=== PATIENT | female | born 1995 | race Caucasian/White ===

== ENCOUNTER 2017-08-21 05:41 | Inpatient (IN) | payer OTHER ==
[2017-08-21] MEDS ORDERED: Acetaminophen 500 MG TAB ONE (06:03)
[2017-08-21 06:31] LABS: Bilirubin Negative (Negative); Blood, Urine Trace (Negative); Clarity TURBID (Clear); Glucose, Urine (Dipstick) Negative (Negative); Leukocyte Large (Negative); Nitrite Negative (Negative); Protein, Urine (Dipstick) 30 mg/dL (Neg-Trace); Specific Gravity, Urine 1.014 (1.002-1.036); pH, Urine 6.5 (5.0-9.0)
[2017-08-21 06:33] LABS: Bacteria/HPF 4+ HPF (None Seen); Hyaline Casts/LPF 0-3 HYALINE CAST LPF (0-3 Hyaline); Squamous Epithelial 0-3 HPF (0-3)
[2017-08-21 06:55] LABS: Anion Gap 14 mmol/L (10-20); BUN (Urea Nitrogen) Less than 4 mg/dL (7.0-18.7); Calc. Creatinine Clearance 0 mL/min (70-130); Calcium 8.6 mg/dL (7.8-10.44); Carbon Dioxide 22 mmol/L (22-29); Chloride 97 mmol/L (98-107); Estimated GFR-MDRD Greater than 90; Glucose 113 mg/dL (70-105); Potassium 3.2 mmol/L (3.5-5.1); Sodium 130 mmol/L (136-145)
[2017-08-21 07:03] LABS: Band 10 % (5-11); Hemoglobin 12.4 g/dL (12.0-16.0); Lymphocytes 5 % (28-48); MDiff Complete? YES; Mean Corpuscular HGB CONC 34.2 g/dL (32.0-36.0); Mean Corpuscular Hemoglobin 28.9 pg (25.0-35.0); Mean Corpuscular Volume 84.5 fl (77.0-87.0); Mean Platelet Volume 8.3 fL (7.4-10.4); Monocytes 3 % (0-4); Neutrophil 82 % (31-61); Platelet Count 118 thou/uL (130-400); RBC Distribution Width 19.4 % (11.5-14.5); White Blood Cell (WBC) Count 12.9 thou/uL (4.8-10.8)
[2017-08-21] MEDS ORDERED: Sodium Chloride 0.9% 100 ML ONE (07:18)
[2017-08-21] MEDS ORDERED: cefTRIAXone\\ROCEPHIN 2 GM VIAL ONE (07:18)
[2017-08-21] MEDS ORDERED: Ondansetron HCl/PF 4 MG/2 ML Vial IVP PRN (08:51)
[2017-08-21] MEDS ORDERED: Acetaminophen 325 MG TAB PO PRN (08:51)
[2017-08-21] MEDS ORDERED: Lactated Ringer's 1,000 ML IV SCH ×2 (09:45→13:45)
[2017-08-21] MEDS ORDERED: Acetaminophen 1,000 MG in Premix Bag 1 BAG IVPB SCH (09:45)
[2017-08-21] MEDS ORDERED: Sodium Chloride 0.9% 1,000 ML IV SCH (10:45)
--- NOTE | 2017-08-21 11:11 | ULT ---
OB ULTRASOUND: Date: 08/21/17 HISTORY: Pyelonephritis. Fever. FINDINGS: Real-time images of the pelvis were obtained transabdominally and show a single viable intrauterine p regnancy in cephalic presentation. The placenta is anterior in location without evidence of previa. Review of anatomy showed no anomalies detected. Amniotic fluid is adequate for this stage of pr egnancy, with an amniotic fluid index of 16.5. heart rate is 180 beats/minute. measurements are as follows: BPD: 6.6 cm, 26 weeks/4 days HC: 23.6 cm, 25 weeks/5 days AC: 21.2 cm, 25 weeks/5 days FL: 4.7 cm, 25 weeks/6 days IMPRESSION: 1. Single viable intrauterine in cephalic presentation. Overall measurements corresponding to a gestational age of 25 weeks/6 days. Estimated date of delivery is 11/28/17. This corresponds to the estimated date by clinical age. 2. Placenta which is anterior in location and without evidence of previa. POS: [facility]
[2017-08-21] MEDS: Docusate 100 MG CAP PO SCH ×2 (12:35→21:43)
--- NOTE | 2017-08-21 13:13 | HP ---
DATE OF ENCOUNTER: 08/21/2017 PRIMARY INVESTMENT BANKING MANAGER: Dr. Omid Hinds. CHIEF COMPLAINT: Fever and back pain. HISTORY OF PRESENT ILLNESS: The patient is a 21-year-old, , female with an intrauterine pregnan cy at 25 weeks and 3 days, who has been followed by Dr. Omid Hinds for approximately the last month . She reports that she presented to the emergency room, because she was having fevers since Tuesday a nd back pain. Her evaluation in the emergency room was consistent with pyelonephritis with a urine c onsistent with infection, CVA tenderness, and high fevers. Urine culture was performed, p.o. Tylenol , and 2 grams of Rocephin were given. The patient was then transferred to Labor and Delivery for con tinued care. She reports that since seeing Dr. Hinds, she has been on oral antibiotics in an attempt to clear urinary tract infection. She does not remember the names of the antibiotics she has been o n though she has been on several courses. Patient reports that she has been having some vomiting and some diarrhea. She reports she still has an appetite. Denies uterine contractions, vaginal bleedin g, leakage of fluid. She denies headaches, fall, chest pain, shortness of breath, new rashes, abdomi nal pain, leg pain or weakness, vaginal bleeding, leakage of fluid, urinary urgency or frequency. Th e patient reports her back hurts like it does when she has been in the car for a long time. PAST MEDICAL HISTORY: Negative. PAST SURGICAL HISTORY: Negative. OBSTETRIC HISTORY: Negative. ALLERGIES: No known drug allergies. SOCIAL HISTORY: Denies drug, alcohol, or tobacco use. OB LABS: Unavailable. REVIEW OF SYSTEMS: Per HPI. PHYSICAL EXAMINATION: VITAL SIGNS: Upon coming to the floor, temperature was initially 100 degrees and has since risen to 104 over a couple hours period, blood pressure is 106/60, pulse in the 100s, respiratory rate 18, sat ting 99% on room air. GENERAL: She appears to be a little lethargic, but otherwise in no acute distress. She is alert and oriented, cooperative and pleasant to interact with. HEAD: Normocephalic, atraumatic. LUNGS: Clear to auscultation bilaterally. HEART: Regular rhythm and is a little tachycardic. ABDOMEN: Soft, gravid, nontender. EXTREMITIES: Nontender, nonedematous. GENITOURINARY EXAM: Has otherwise been deferred. heart tracing performed. Baselines in the 150s with moderate long-term variability, appropriat e for 25 weeker, no contractions seen on tocometer. LABORATORY DATA: White count 12.9, hemoglobin 12.4, hematocrit 36.3, platelets 118,000, neutrophil p ercentage 82. Sodium 130, potassium 3.2, creatinine 0.64. Lactic acid 1.5, calcium 8.6. Urine has 1+ protein, large ketones trace, blood, negative nitrites, large leukocyte esterase, greater than 50 white blood cells, 0 squamous cells, 4+ bacteria. A urine culture is pending and blood cultures pend ing. The patient has been given approximately 3 liters of IV fluids since admission and has been given a d ose of Rocephin. With the patient's high temperatures and persistent temperatures after IV Tylenol, I have added gentamicin to her regimen once a day dosing at 5 mg/kg. I have notified her primary OB, Dr. Omid Hinds, who has asked us to manage her this admission. She is here in Labor and Delivery. We will keep a close eye on her and look for any signs of worsening disease or any pulmonary compli cations.
[2017-08-21] MEDS: NS 0.9% w/ 40 MEQ KCL 1,000 ML IV SCH ×2 (15:26→21:28)
[2017-08-21] MEDS ORDERED: Acetaminophen 1,000 MG in Premix Bag 1 BAG IVPB PRN (16:16)
[2017-08-21] MEDS ORDERED: Acetaminophen 500 MG TAB PO PRN (16:21)
[2017-08-21] MEDS ORDERED: Acetaminophen 325 MG TAB PO SCH (16:30)
[2017-08-21] MEDS: Sodium Chloride 0.9% 500 ML IV SCH ×2 (16:31→18:48)
[2017-08-21] MEDS ORDERED: Sodium Chloride 0.9% 500 ML IV SCH (18:15)
[2017-08-21 20:03] LABS: Mean Corpuscular HGB CONC 33.8 g/dL (32.0-36.0); Mean Corpuscular Hemoglobin 28.7 pg (25.0-35.0); Mean Corpuscular Volume 85.2 fl (77.0-87.0); Mean Platelet Volume 8.5 fL (7.4-10.4); Platelet Count 90 thou/uL (130-400); RBC Distribution Width 19.1 % (11.5-14.5); Red Blood Cell (RBC) Count 3.49 mill/uL (4.00-5.20); White Blood Cell (WBC) Count 9.4 thou/uL (4.8-10.8)
[2017-08-21 20:11] LABS: Lactic Acid 1.8 mmol/L (0.5-2.2)
[2017-08-21 20:21] LABS: Anisocytosis SLIGHT = 6-15 cells (100X) (0-5/hpf); Band 10 % (5-11); Lymphocytes 9 % (28-48); MDiff Complete? YES; Monocytes 2 % (0-4); Neutrophil 79 % (31-61); PLT Morphology Comment Appears Decreased; Polychromasia SLIGHT = 2-3 cells (100X) (0-2/hpf)
--- NOTE | 2017-08-21 20:49 | RAD ---
PORTABLE UPRIGHT FRONTAL CHEST RADIOGRAPH: 08/21/2017 HISTORY: Shortness of breath and crackles. COMPARISON: None. FINDINGS: Heart and mediastinal contours are unremarkable. There is no pneumothorax seen. There is mild increased linear density in both lung bases, which could represent volume loss or mild interstitial infiltrate. No focal consolidation or alveolar edema. IMPRESSION: Mild nonspecific increased linear density in the lung bases with no focal consolidation or alveolar e tom. A mild degree of interstitial edema or interstitial inflammatory change cannot be excluded. POS: [facility]
[2017-08-21] MEDS ORDERED: Sodium Chloride 0.9% 250 ML 250 ML IV PRN (21:10)
[2017-08-21] MEDS: cefTRIAXone\\ROCEPHIN 1 GM in Sodium Chloride 0.9% 100 ML IVPB SCH (21:43)
[2017-08-21] MEDS: NS 0.9% w/ 20 MEQ KCL 1,000 ML/1,000 ML BAG IV SCH (21:46)
--- NOTE | 2017-08-21 21:49 | PRG ---
DATE OF SERVICE: 08/21/2017 TIME: 2007 SUBJECTIVE: Patient is a 21-year-old female G1, P0 with an intrauterine at 25 weeks, who w as admitted this morning for right-sided pyelonephritis and placed on Rocephin. Throughout the day, the patient has progressively shown signs of worsening disease. Blood pressures have decrease from t he 100s/60s to 90s/40s increasing tachycardia from 100s to the 130s. Respiratory rate is increased. Patient has been desaturating into the lower 90s with crackles on her lungs. PHYSICAL EXAMINATION: Temperature has been difficult to keep down. On arrival, patient had a temper ature of 100.0. Through much of the day, her temperature has been between 102 and 104 degrees. Not responsive to Tylenol. Given the overall concerns in addition, the patient has received about 5 lite rs of IV fluids in an effort to improve her overall picture. On arrival, lactic acid was normal at 1.5, creatinine 0.64. Patient reports she is having back pain and visibly she appears much more tired than earlier today and becoming more tachypneic. I have orde red another lactic acid, CBC, and ABG and a chest x-ray. Dunbar catheter has been placed and shows th e initial output of about 400-500 mL, which is good evidence of perfusion at this time. I have consu lted pulmonology, Dr. Carrillo on duty tonight with my overall concerns that she may require more supp ort than I can give her here in labor and delivery tonight in the direction that she is going. I hav e transferred the patient to the ICU. Hopefully, she does not require respiratory support or pressur e support, but in the event that she does tonight. The ICU was a much better place for her at this t adán. Thank you, Dr. Carrillo for your assistance. The patient has received Rocephin and gentamicin today, 5 liters of fluids and Tylenol for fever.
--- NOTE | 2017-08-22 02:04 | CON ---
DATE OF CONSULTATION: 08/21/2017 CONSULTING PHYSICIAN: Dr. Sprague. REASON FOR CONSULTATION: Pyelonephritis with hypotension and sepsis. HISTORY OF PRESENT ILLNESS: Patient is a 21-year-old female who is 24 weeks' . She came in with back pain and difficulty with urination. She has been treated for urinary tract infections over the last month and a half. She has had a course of Keflex. She has grown E. coli, which is apparen tly resistant to gentamicin. She is up in the labor and delivery area. She has had blood pressur e down into the 90s with a fever of 104. Her pulse is running about 130. They were concerned about her O2 sats being in the low 90s, but that was while she was having fever. PAST MEDICAL HISTORY: This is her first . PAST SURGICAL HISTORY: None. ALLERGIES: None. SOCIAL HISTORY: Does not smoke, does not consume alcohol, does not use illicit drugs. MEDICATIONS PRIOR TO ADMISSION: She had been taking Macrodantin and Keflex at one point. She has al so been taking multivitamins. REVIEW OF SYSTEMS: Twelve-point review of systems, otherwise negative. PHYSICAL EXAMINATION: VITAL SIGNS: Temperature 104.7, pulse 129, respirations 20, blood pressure 97/50. She is sitting up in bed. She is texting. She is concerned about being able to have water and consumer [employer] ord ered in the ICU. She is in no gerard distress. HEENT: Unremarkable. NECK: Without adenopathy or JVD. LUNGS: She has a few crackles in both bases. No accessory muscle use. CARDIOVASCULAR: S1, S2, tachycardic without murmur. ABDOMEN: Gravid. BACK: No palpable costovertebral angle tenderness. EXTREMITIES: No clubbing or cyanosis. NEUROLOGIC: Grossly intact throughout. She had heart tones that were at the appropriate rate. LABORATORY DATA AND X-RAY FINDINGS: Urinalysis demonstrated too numerous to count white blood cells. Sodium 130, potassium 3.2, chloride 97, CO2 of 22, anion gap 14, BUN 4, creatinine 0.6, glucose 113 . Lactate 1.8. White blood cell count 9.4, hematocrit 29.7, platelet count 90 with 79% neutrophils, 10% bands. Her x-ray showed no overt mass, effusion, or infiltrate. ASSESSMENT: 1. Pyelonephritis. 2. Sepsis syndrome. PLAN: She will be moved to the CCU. I think, we can be preliberal with fluid administration, as she has no evidence of heart failure that I can see. She will receive Rocephin for IV antibiotics cover age - discussed this with Dr. Sprague. She will be resuscitated with normal saline. Labs will be ch ecked. I will also put on vitamin C and thiamine for sepsis. The above encompassed 45 minutes of critical care time.
[2017-08-22] MEDS: NS 0.9% w/ 20 MEQ KCL 1,000 ML/1,000 ML BAG IV SCH (04:28)
[2017-08-22 05:00] LABS: #Lymphocytes 0.9 thou/uL (1.20-3.40); #Monocytes 0.7 thou/uL (0.11-0.59); #Neutrophils 9.1 thou/uL (1.40-6.50); %Eosinophils 0.2 % (0.0-10.0); %Lymphocytes 8.6 % (28.0-48.0); %Monocytes 6.3 % (0.0-4.0); %Neutrophils 84.9 % (31.0-61.0); Hemoglobin 9.8 g/dL (12.0-16.0); Mean Corpuscular HGB CONC 32.8 g/dL (32.0-36.0); Mean Corpuscular Hemoglobin 27.9 pg (25.0-35.0); Mean Corpuscular Volume 85.1 fl (77.0-87.0); Mean Platelet Volume 8.9 fL (7.4-10.4); Platelet Count 94 thou/uL (130-400); RBC Distribution Width 19.1 % (11.5-14.5); Red Blood Cell (RBC) Count 3.49 mill/uL (4.00-5.20); White Blood Cell (WBC) Count 10.7 thou/uL (4.8-10.8)
[2017-08-22 06:10] LABS: Anion Gap 14 mmol/L (10-20); BUN (Urea Nitrogen) Less than 4 mg/dL (7.0-18.7); Calc. Creatinine Clearance 186 mL/min (70-130); Calcium 7.7 mg/dL (7.8-10.44); Carbon Dioxide 14 mmol/L (22-29); Chloride 110 mmol/L (98-107); Estimated GFR-MDRD Greater than 90; Glucose 98 mg/dL (70-105); Potassium 3.1 mmol/L (3.5-5.1); Sodium 135 mmol/L (136-145)
[2017-08-22] MEDS ORDERED: Potassium Chloride 20 MEQ TAB PO SCH (07:45)
--- NOTE | 2017-08-22 07:50 | PRG ---
DATE OF SERVICE: 08/22/2017 She feels somewhat better compared to yesterday, but that is probably because her fever is down. PHYSICAL EXAMINATION: VITAL SIGNS: Currently, she is at 100.6, pulse 115, blood pressure 110/46. 24 hour intake is probab ly close to 6 liters, output 3015. HEENT: Unremarkable. NECK: No JVD. LUNGS: Clear. CARDIAC: S1 and S2 tachycardic. ABDOMEN: Soft, nontender. EXTREMITIES: No edema. LABORATORY DATA: White blood count 10.7 down from 12.9, hematocrit 29.7, platelet count 94. Sodium 135, potassium 3.1, chloride 110, CO2 14, BUN 4, creatinine 0.5, glucose 98. Lactate 1.0. Micro cul tures showed no growth to date. ASSESSMENT: 1. Pyelonephritis. 2. Sepsis syndrome. 3. Mild thrombocytopenia. 4. Non-anion gap metabolic acidosis. 5. Mild hypokalemia. PLAN: 1. Replace potassium. 2. Change IV fluids to help with the patient's acidosis. 3. Can probably go to the OB floor later today.
[2017-08-22] MEDS ORDERED: cefTRIAXone\\ROCEPHIN 2 GM in Sodium Chloride 0.9% 100 ML IVPB SCH (08:00)
[2017-08-22] MEDS ORDERED: Acetaminophen 1,000 MG in Premix Bag 1 BAG IVPB PRN (08:52)
[2017-08-22] MEDS: SODIUM CHLORIDE 0.45% IV SCH ×2 (09:18→22:10)
[2017-08-22] MEDS: POTASSIUM CHLORIDE IV SCH ×2 (09:18→22:10)
[2017-08-22] MEDS: SODIUM BICARBONATE IV SCH ×2 (09:18→22:10)
[2017-08-22] MEDS: Docusate 100 MG CAP PO SCH ×2 (09:30→22:30)
[2017-08-22] MEDS: cefTRIAXone\\ROCEPHIN 1 GM in Sodium Chloride 0.9% 100 ML IVPB SCH ×2 (10:11→21:27)
--- NOTE | 2017-08-22 10:39 | ULT ---
BILATERAL RENAL ULTRASOUND: Date: 08/22/17 HISTORY: 21-year-old female with pyelonephritis. FINDINGS: The right kidney measures 14.7 cm in length and the left kidney measures 13.7 cm in length. There is mild right-sided hydronephrosis. No renal mass or left-sided hydronephrosis seen. There is a Dunbar ca theter in the urinary bladder. IMPRESSION: Mild right hydronephrosis. POS: [facility]
--- NOTE | 2017-08-22 14:53 | PRG ---
DATE OF SERVICE: 08/22/2017 TIME OF SERVICE: 11:10 SUBJECTIVE: Ms. Marino has been transferred to APU #1 from CCU. She is at 22 weeks with pyelonephri tis. Urine cultures come back positive for E. coli, which is what the patient's screening. Urine cu lture was reported to have grown by Dr. Hinds, who reported that it was sensitive to cephalosporins. Sensitivities are pending. OBJECTIVE: VITAL SIGNS: Patient's vital signs include a temperature of 100.5, pulse of 123, respirations of 28, O2 sats were 88% on room air, 94% on 2 liter nasal cannula. LUNGS: Clear bilaterally and the patient feels better. LABORATORY STUDIES: Includes white count of 10.7, hematocrit 29.7, platelet count persistently low a t 90,000. Base met reveals a compensatory alkalosis secondary to metabolic . She has a low CO2 and a mild metabolic acidosis likely secondary to IV resuscitation with Ringer's lactate. This is a lso likely part of the cause of the patient's tachypnea and she is having a compensatory respiratory alkalosis. Blood cultures are negative. IMPRESSION: Pyelonephritis in , slowly improving. PLAN: Continue IV antibiotics. Continue observation on labor and delivery unit. May consider trans ten to floor later today.
[2017-08-22] MEDS ORDERED: Furosemide 20 MG/2 ML VIAL SLOW IVP SCH (18:00)
[2017-08-22 18:28] LABS: Hemoglobin 11.1 g/dL (12.0-16.0); Mean Corpuscular HGB CONC 33.5 g/dL (32.0-36.0); Mean Corpuscular Hemoglobin 28.7 pg (25.0-35.0); Mean Corpuscular Volume 85.5 fl (77.0-87.0); Mean Platelet Volume 8.5 fL (7.4-10.4); Platelet Count 109 thou/uL (130-400); RBC Distribution Width 19.5 % (11.5-14.5); Red Blood Cell (RBC) Count 3.86 mill/uL (4.00-5.20); White Blood Cell (WBC) Count 13.5 thou/uL (4.8-10.8)
[2017-08-22 18:46] LABS: Anion Gap 13 mmol/L (10-20); BUN (Urea Nitrogen) Less than 4 mg/dL (7.0-18.7); Calc. Creatinine Clearance 186 mL/min (70-130); Calcium 8.4 mg/dL (7.8-10.44); Carbon Dioxide 19 mmol/L (22-29); Chloride 110 mmol/L (98-107); Estimated GFR-MDRD Greater than 90; Glucose 116 mg/dL (70-105); Potassium 3.8 mmol/L (3.5-5.1); Sodium 138 mmol/L (136-145)
[2017-08-22 19:10] LABS: Anisocytosis SLIGHT = 6-15 cells (100X) (0-5/hpf); Band 25 % (5-11); Lymphocytes 9 % (28-48); MDiff Complete? YES; Monocytes 6 % (0-4); Neutrophil 60 % (31-61); PLT Morphology Comment Appears Decreased
[2017-08-22 21:39] LABS: pH, Arterial 7.51 (7.35-7.45)
[2017-08-22 21:40] LABS: Actual Bicarbonate (HCO3a) 16.9 mEq/L (22-28); Base Excess (BEa) -4.2 mEq/L (-2.0 to +3.0); CO2 Tension 21.9 mmHg (35.0-45.0); Hemoglobin (Hb) 12.6 g/dL (11.4-15.4); O2 Tension (PaO2) 60.7 mmHg (80.0-100.0)
[2017-08-22 21:41] LABS: Analyzer IN Cardio OR; Calcium, Ionized 1.1 mmol/L (1.12-1.30); Puncture Site RRA
[2017-08-22 21:42] LABS: ALV-art Gradient 140.085 (0-20)
[2017-08-23] MEDS: POTASSIUM CHLORIDE IV SCH (05:00)
[2017-08-23] MEDS: SODIUM CHLORIDE 0.45% IV SCH (05:00)
[2017-08-23] MEDS: SODIUM BICARBONATE IV SCH (05:00)
--- NOTE | 2017-08-23 07:33 | PRG ---
DATE OF SERVICE: 08/23/2017 TIME OF SERVICE: 0700 The patient is in the hospital with pyelonephritis at 25 weeks gestation. PHYSICAL EXAMINATION: VITAL SIGNS: T-max was 100.3 at 1900. Temperature now is 98.0, pulse 95, respirations 28, blood pre ssure 101/61. HEENT: Within normal limits. LUNGS: Clear to auscultation bilaterally, but may be some slight crackles in bilateral bases. That exam has improved over yesterday p.m. prior to one dose of Lasix. ABDOMEN: Soft and nontender. She has mild right-sided CVA tenderness. EXTREMITIES: Without clubbing, cyanosis or edema. No palpable contractions. FHTs 150s. LABORATORY: Urine was positive for E. coli, it was sensitive to Rocephin and Macrodantin. Her hemat ocrit is 33% this morning. Platelet count is up to 109. IMPRESSION: Pyelonephritis complicated, with pulmonary injury. PLAN: Continue Rocephin. Follow urine output and respiratory rate. Anticipate probable discharge o n Macrodantin suppression for the rest of her after completing antibiotic therapy.
[2017-08-23] MEDS ORDERED: Potassium Chloride 20 MEQ TAB PO PRN (08:13)
[2017-08-23] MEDS ORDERED: Furosemide 40 MG/4 ML VIAL SLOW IVP SCH (08:15)
--- NOTE | 2017-08-23 08:23 | PRG ---
DATE OF SERVICE: 08/23/2017 She says she feels a little better today. PHYSICAL EXAMINATION: VITAL SIGNS: Temperature 98.0, pulse 95, respiration 20, O2 sat 95% on 3 liters last blood pressur e that we have is 101/61 earlier this morning. HEENT: Unremarkable. NECK: No JVD. LUNGS: She has inspiratory crackles bilaterally, best heard posteriorly. CARDIAC: S1 and S2 regular. ABDOMEN: Gravid. EXTREMITIES: Edematous. LABORATORY DATA: Sodium 130, potassium 3.8, chloride 110, CO2 19, BUN 4, creatinine 0.5, glucose 116 - that was last night at 1817, hemoglobin 11, hematocrit 33, platelet count 109, white blood cell co unt 13.5. Urine culture is growing E. coli sensitive to Rocephin. Urine ultrasound showed some mild right-sided hydronephrosis. ASSESSMENT: Pyelonephritis with urosepsis. PLAN: She is fluid overloaded. I will go ahead and stop her IV fluids, give her a dose of Lasix. C ontinue antibiotics. Expected that she will probably spiked a fever again tonight, but will probably not be as high as either in the last 2 days. The patient needs to be encouraged to ambulate.
[2017-08-23] MEDS ORDERED: Sodium Chloride 0.9% 10 ML ONE (08:41)
[2017-08-23] MEDS: Docusate 100 MG CAP PO SCH ×2 (10:25→21:32)
[2017-08-23] MEDS: cefTRIAXone\\ROCEPHIN 1 GM in Sodium Chloride 0.9% 100 ML IVPB SCH ×2 (10:25→21:31)
[2017-08-23 12:23] LABS: Anion Gap 14 mmol/L (10-20); BUN (Urea Nitrogen) Less than 4 mg/dL (7.0-18.7); Calc. Creatinine Clearance 189 mL/min (70-130); Calcium 8.6 mg/dL (7.8-10.44); Carbon Dioxide 21 mmol/L (22-29); Chloride 107 mmol/L (98-107); Estimated GFR-MDRD Greater than 90; Glucose 145 mg/dL (70-105); Potassium 3.4 mmol/L (3.5-5.1); Sodium 139 mmol/L (136-145)
[2017-08-24 06:04] LABS: Anion Gap 11 mmol/L (10-20); BUN (Urea Nitrogen) 5 mg/dL (7.0-18.7); Calc. Creatinine Clearance 212 mL/min (70-130); Calcium 8.1 mg/dL (7.8-10.44); Carbon Dioxide 24 mmol/L (22-29); Chloride 106 mmol/L (98-107); Estimated GFR-MDRD Greater than 90; Glucose 89 mg/dL (70-105); Potassium 3.4 mmol/L (3.5-5.1); Sodium 138 mmol/L (136-145)
--- NOTE | 2017-08-24 08:00 | PRG ---
DATE OF SERVICE: 08/24/2017 PRIMARY OB: Dr. Omid Hinds HISTORY OF PRESENT ILLNESS: The patient is a 21-year-old female who is now hospital day #3, ad mitted for pyelonephritis, on Rocephin. The patient's cultures have grown out E. coli sensitive to c ephalosporins and Macrobid. The patient reports that she is feeling better. She denies any abdomina l pain or back pain or fever. The patient was given a dose of Lasix yesterday and pulled off over 2 liters. Since then, the patient has had no requirements for oxygen has been ambulating and significa ntly improved. PHYSICAL EXAMINATION: VITAL SIGNS: This morning blood pressure 102/56, satting 95% on room air, respiratory rate of 24, pu lse of 82, temperature 97.7. Her last febrile episode was on 08/22/2017 at 8:00 in the evening. GENERAL: The patient appears to be in no acute distress. She is alert and oriented, cooperative and pleasant to interact with. HEENT: Normocephalic, atraumatic. LUNGS: Lungs are much improved to auscultation and clear. HEART: Regular rate and rhythm. ABDOMEN: Gravid, soft, nontender. heart tracing demonstrates a fetus in the 130s with moderate long-term variability, positive ac celerations, no decelerations, duration of the strip is 30 minutes. ASSESSMENT AND PLAN: The patient is hospital day #3, admitted for pyelonephritis. She has now been afebrile for 36 hours. We have cultures back on her urine. Anticipate discontinuation of IV antibio tics tomorrow with possible discharge home on oral antibiotics and afterwards suppression for the rem ainder of the .
--- NOTE | 2017-08-24 09:06 | PDOC.EVN ---
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
--- NOTE | 2017-08-24 09:36 | PRG ---
DATE OF SERVICE: 08/24/2017 The patient feels better. She had no fever last night. She diuresed appropriately yesterday and now has a room air O2 sat of about 96%. She says her breathing is back to baseline. PHYSICAL EXAMINATION: VITAL SIGNS: Temperature 97%, pulse 82, O2 sat 95%, blood pressure 152/56. HEENT: Unremarkable. NECK: No JVD. CHEST: Clear. CARDIAC: S1 and S2 regular. ABDOMEN: Soft, gravid. EXTREMITIES: No edema. LABORATORY DATA: Sodium 138, potassium 3.4, chloride 106, CO2 24, BUN 5, creatinine 0.5, glucose 89. ASSESSMENT: Pyelonephritis aggravated by E. coli. RECOMMENDATIONS: Continue IV antibiotics. I think she is safe to go home at any time. Pulmonary Cr itical Care will sign off. Please recall if further assistance needed.
[2017-08-24] MEDS: cefTRIAXone\\ROCEPHIN 1 GM in Sodium Chloride 0.9% 100 ML IVPB SCH ×2 (10:16→21:23)
[2017-08-24] MEDS: Docusate 100 MG CAP PO SCH ×2 (10:18→21:23)
--- NOTE | 2017-08-25 04:03 | PDOC.EVN ---
Event Note - Event Note Event Note: DX: Pyelo OB 25-26 weeks S. Doing well. Good FM, no ctx. VSS AFEBRILE No VB No ROM Assessment/Plan: Resolved pyelo. On Rocephin. Home with macrobid x 10 days, then will need suppression. OK for home today. Afebrile for about 48 hours.
--- NOTE | 2017-08-25 05:10 | DIS ---
DATE OF ADMISSION: 08/21/2017 DATE OF DISCHARGE: 08/25/2017 LOCATION: 3 [facility], patient room #315. PRINCIPAL DIAGNOSES: 1. Obstetrical pyelonephritis. 2. Second trimester . 3. Primigravida. HOSPITAL COURSE: In brief, this is a patient who was admitted by Dr. Sprague on 08/21/2017 as a 21-y ear-old primigravida, who is 25 weeks and 3 days on presentation, who has been seen Dr. Hinds for [facility] 1 month prior to presentation. She complains of fever and back pain. She was diagnosed with pyel onephritis and was admitted for antibiotic therapy. According to the history and physical, due to th e patient's high temperature, she was placed on Rocephin and gentamicin. On 08/21/2017, Dr. Guero young with the medical ICU was contacted for possible early sepsis symptoms. Per his consult note, s he was moved to the CCU for continued fluid administration and observation. She was also continued o n her Rocephin for IV antibiotics. She was also put on vitamin C and thiamine for sepsis. In terms of laboratory assessment, the patient's initial white blood cell count was 12.9 with a last value obt ained which was 13.5 on 08/22/2017. On the morning of 08/25/2017 at 0407 hours, I ordered a repeat C BC to document a resolution of her mild leukocytosis. Results were pending at the time of this dicta tion. The patient's creatinine was 0.57 on admission. Lactic acid was 1.0 on admission. Her urine culture returned positive for E. coli, sensitive to Rocephin and sensitive to nitrofurantoin. The renee andrew was discharged home on 08/25/2017 after being afebrile for 48 hours. I evaluated the patient o n 08/25/2017 at bedside and found her to be afebrile with a last temperature of 98.1, pulse of 60s-70 s, with blood pressures with systolics in the 90s over diastolics of 50s. I informed her that she wo uld be discharged home on Macrobid 100 mg 1 p.o. b.i.d. for 10 days and instructed her to contact her [employer] provider for followup before the medication is over. The patient will need suppression to pr event pyelonephritis recurrence. She voiced understanding. During her admission, she did have an ob stetrical bilateral renal ultrasound performed on 08/22/2017, which simply showed mild right hydronep hrosis. No masses or evidence of blockage was noted. She also had a chest x-ray on 08/21/2017, whic h showed no focal consolidation or alveolar edema. According to the report, a mild degree of interst itial edema or interstitial inflammatory changes cannot be excluded. She did have a ultrasound as well on 08/21/2017, which overall agreed with her gestational age, which showed normal hear t rate, normal amniotic fluid volume of 16.5, with a composite gestational age of 25 weeks and 6 days based on the ultrasound. DISPOSITION: Home with medications as dictated.
[2017-08-25 06:46] LABS: Band 2 % (5-11); Eosinophils 3 % (0-10); Hemoglobin 9.9 g/dL (12.0-16.0); Lymphocytes 19 % (28-48); MDiff Complete? YES; Mean Corpuscular HGB CONC 32.7 g/dL (32.0-36.0); Mean Corpuscular Hemoglobin 27.9 pg (25.0-35.0); Mean Corpuscular Volume 85.2 fL (78.0-98.0); Mean Platelet Volume 8.3 fL (7.4-10.4); Metamyelocyte 1 % (0-0); Monocytes 9 % (0-4); Neutrophil 66 % (31-61); Platelet Count 127 thou/uL (130-400); RBC Distribution Width 18.6 % (11.5-14.5); Red Blood Cell (RBC) Count 3.56 mill/uL (4.00-5.20); White Blood Cell (WBC) Count 5.4 thou/uL (4.8-10.8)
--- NOTE | 2017-08-25 08:08 | PDOC.EVN ---
Event Note - Event Note Event Note: Predicable lab check: CBC this AM is normal. OK for discharge. Hinds to follow up. Has RX for outpatient.
== END 2017-08-25 10:30 | disposition home or self-care (01) | DRG 781 ==
LOC: ERS 05:41 → L&D/OP 08:16 → L&D 10:27 → CCU 21:31 → L&D 08-22 08:42 → 3SW 08-22 13:54 → 3SE 08-22 23:21
PROVIDERS: ADMIT Family Medicine; ATTEND Family Medicine
DX: O98.812 Other maternal infectious and parasitic diseases complicating pregnancy, second trimester (principal); A41.51 Sepsis due to Escherichia coli [E. coli]; O23.02 Infections of kidney in pregnancy, second trimester; E87.2 Acidosis; O99.112 Other diseases of the blood and blood-forming organs and certain disorders involving the immune mechanism complicating pregnancy, second trimester; O99.412 Diseases of the circulatory system complicating pregnancy, second trimester; Z3A.25 25 weeks gestation of pregnancy; D69.6 Thrombocytopenia, unspecified; I95.9 Hypotension, unspecified; E87.6 Hypokalemia; O99.282 Endocrine, nutritional and metabolic diseases complicating pregnancy, second trimester
CPT/HCPCS: 36415; 71045; 76770; 76805; 80048; 81003; 81015; 82805; 83605; 85025; 87040; 87077; 87086; 87186; 96361; 96365; 99285; A4216; J0131; J0696; J1580; J1940; J3411; J3480; J7050

== ENCOUNTER 2017-11-21 11:25 | Day surgery (SDC) | payer SELFPAY ==
[2017-11-21 12:09] VITALS: BMI 29.9
[2017-11-21 12:21] LABS: #Lymphocytes 1.2 thou/uL (1.20-3.40); #Monocytes 0.3 thou/uL (0.11-0.59); %Basophils 0.2 % (0.0-1.0); %Eosinophils 0.3 % (0.0-10.0); %Lymphocytes 17.6 % (21.0-51.0); %Monocytes 5.1 % (0.0-10.0); %Neutrophils 76.8 % (42.0-75.0); Mean Corpuscular HGB CONC 34.1 g/dL (32.0-36.0); Mean Corpuscular Hemoglobin 31.5 pg (27.0-31.0); Mean Corpuscular Volume 92.3 fL (78.0-98.0); Mean Platelet Volume 9.5 fL (7.4-10.4); Platelet Count 134 thou/uL (130-400); RBC Distribution Width 13.7 % (11.5-14.5); Red Blood Cell (RBC) Count 4.46 mill/uL (4.20-5.40); White Blood Cell (WBC) Count 6.6 thou/uL (4.8-10.8)
[2017-11-21 12:47] LABS: ALT (SGPT) 14 U/L (8-55); AST (SGOT) 26 U/L (5-34); Albumin 3.4 g/dL (3.5-5.0); Alkaline Phosphatase 149 U/L (40-150); Anion Gap 14 mmol/L (10-20); BUN (Urea Nitrogen) 4 mg/dL (7.0-18.7); Bilirubin, Total 0.6 mg/dL (0.2-1.2); Calc. Creatinine Clearance 212 mL/min (70-130); Calcium 8.5 mg/dL (7.8-10.44); Carbon Dioxide 20 mmol/L (22-29); Chloride 104 mmol/L (98-107); Estimated GFR-MDRD Greater than 90; Globulin 3.1 g/dL (2.4-3.5); Glucose 74 mg/dL (70-105); Potassium 3.4 mmol/L (3.5-5.1); Protein, Total 6.5 g/dL (6.0-8.3); Sodium 135 mmol/L (136-145)
[2017-11-21 15:47] LABS: Creatinine, Urine 40.14 mg/dL (47-110); Protein, Urine Random Quant Less than 10 mg/dL (1-14)
--- NOTE | 2017-11-21 15:59 | ULT ---
OB ULTRASOUND WITH BIOPHYSICAL PROFILE: DATE: 11/21/17. HISTORY: Elevated maternal blood pressure. FINDINGS: There is a single intrauterine gestation in cephalic presentation. Cardiac Doppler demonstrates feta l heart tones with a heart rate of 125 b.p.m. The placenta is located anteriorly without evide nce of placenta previa. Amniotic fluid index is diminished at 7 cm. Cervical length measures 4.2 cm in length based on transabdominal imaging. MEASUREMENTS: Biparietal diameter 9.2 cm, 37 weeks 3 days Head circumference 34.37 cm, 39 weeks 5 days Abdominal circumference 33.98 cm, 37 weeks 6 days Femur length 7.26 cm, 37 weeks 1 day The gestational age by ultrasound is 38 weeks and 1 day with an estimated date of delivery on 12/04/17 . Gestational age by the last menstrual period is 38 weeks and 4 days. The estimated weight by ultrasound is 3,327 gm (7 pounds 5 ounces). A score of 2 was obtained each for tone, movements, and amniotic fluid volume. A score o r 0 was obtained for breathing. This examination was not performed for evaluation of the anatomical structures. IMPRESSION: 1. Total biophysical profile score is 6 out of 8. 2. Decreased amniotic fluid volume with amniotic fluid index of 7 cm. 3. Single intrauterine gestation in cephalic presentation. heart tones were obtained at 125 b .p.m. 4. The estimated gestational age by ultrasound is 38 weeks and 1 day with an estimated date of deliv edwin on 12/04/17. 5. Estimated weight by ultrasound is 3,327 grams (7 pounds 5 ounces). This represents 48th pe rcentile for weight. POS: [facility]
--- NOTE | 2017-11-21 17:21 | ULT ---
OB ULTRASOUND: 11/21/2017 This dictation is included with the biophysical profile also obtained on this day. Please see that dictation for further details. POS: [facility]
== END 2017-11-21 16:53 | disposition home or self-care (01) ==
LOC: L&D/OP 11:25
PROVIDERS: ATTEND Family Medicine
DX: O16.3 Unspecified maternal hypertension, third trimester (principal); Z3A.38 38 weeks gestation of pregnancy; Z79.899 Other long term (current) drug therapy
CPT/HCPCS: 36415; 76805; 76819; 80053; 82570; 84156; 85025; 99285

== ENCOUNTER 2017-11-28 15:10 | Inpatient (IN) | payer OTHER ==
[2017-11-28 20:57] VITALS: BMI 29.1
[2017-11-28] MEDS ORDERED: Lidocaine 1% (PF) 30 ML VIAL SC PRN (20:57)
[2017-11-28] MEDS ORDERED: NS w/ Oxytocin 10 units 500 ML IV SCH ×2 (20:57)
[2017-11-28] MEDS ORDERED: Diphenoxylate HCl/Atropine Tablet PO PRN (20:57)
[2017-11-28] MEDS ORDERED: Ibuprofen 800 MG TAB PO PRN (20:57)
[2017-11-28] MEDS ORDERED: Carboprost 250 MCG/ML AMP IM PRN (20:57)
[2017-11-28] MEDS ORDERED: HYDROcodone/Acetaminophen 5/325 mg Tablet PO PRN (20:57)
[2017-11-28 21:43] LABS: Hemoglobin 14.1 g/dL (12.0-16.0); Mean Corpuscular Hemoglobin 31.9 pg (27.0-31.0); Mean Corpuscular Volume 90.9 fL (78.0-98.0); Mean Platelet Volume 9.3 fL (7.4-10.4); Platelet Count 135 thou/uL (130-400); Red Blood Cell (RBC) Count 4.44 mill/uL (4.20-5.40); White Blood Cell (WBC) Count 8.3 thou/uL (4.8-10.8)
[2017-11-28] MEDS: Misoprostol 100 MCG TAB PO SCH (21:59)
[2017-11-28] MEDS: Lactated Ringer's 1,000 ML IV SCH (22:05)
[2017-11-28 22:31] LABS: Syphilis Antibody Nonreactive (Nonreactive); Syphilis Antibody Index 0.04 S/CO (<1.00 Non-Reactive)
[2017-11-29 00:28] LABS: HBSAg Index 0.14 S/CO (0-0.99); Hep B Surf Ag Non-Reactive S/CO (NonReactive)
[2017-11-29] MEDS: Misoprostol 100 MCG TAB PO SCH ×2 (02:00→17:05)
[2017-11-29] MEDS: Butorphanol Tartrate 1 MG/ML VIAL SLOW IVP PRN ×2 (02:18→07:21)
[2017-11-29] MEDS: Lactated Ringer's 1,000 ML IV SCH ×2 (03:03→17:07)
[2017-11-29] MEDS: Ondansetron HCl/PF 4 MG/2 ML Vial IVP PRN ×2 (06:53→13:42)
[2017-11-29] MEDS ORDERED: DISCONTINUE ALL PREVIOUS NARCOTICS FS SCH (07:00)
[2017-11-29] MEDS ORDERED: Bupivacaine 0.5% 20 ML, fentaNYL Citrate/PF 400 MCG in Sodium Chloride 0.9% 72 ML EPIDURAL SCH (07:00)
[2017-11-29] MEDS ORDERED: Butorphanol Tartrate 1 MG/ML VIAL ONE (07:18)
[2017-11-29] MEDS ORDERED: Fentanyl 100 MCG/2 ML VIAL ONE (07:46)
[2017-11-29] MEDS: NS / Oxytocin 40 units/1000ml 1,000 ML IV PRN ×2 (13:15→14:30)
[2017-11-29] MEDS ORDERED: Misoprostol 200 MCG TAB ONE (13:20)
[2017-11-29] MEDS ORDERED: Misoprostol 200 MCG TAB PO SCH (13:45)
[2017-11-29] MEDS ORDERED: diphenhydrAMINE 50 MG/ML VIAL IVP PRN (15:36)
[2017-11-29] MEDS ORDERED: Acetaminophen 325 MG TAB PO PRN (15:36)
[2017-11-29] MEDS ORDERED: Promethazine HCl 25 MG/ML VIAL IM PRN (15:36)
[2017-11-29] MEDS ORDERED: Ondansetron HCl/PF 4 MG/2 ML Vial IVP PRN ×2 (15:36→17:02)
[2017-11-29] MEDS ORDERED: ePHEDrine/0.9% NaCl/PF SYRINGE 50 mg/10 ml SLOW IVP PRN (15:36)
[2017-11-29] MEDS ORDERED: Naloxone HCl 0.4 mg/ml Vial IVP PRN ×2 (15:36)
[2017-11-29] MEDS ORDERED: Eucerin (Mineral Oil/Petrolatum,White) 30 gm Jar TOP PRN (15:36)
[2017-11-29] MEDS ORDERED: Lactated Ringer's 500 ML IV PRN (15:36)
[2017-11-29] MEDS ORDERED: fentaNYL Citrate/PF 400 MCG, Bupivacaine 0.5% 20 ML in Sodium Chloride 0.9% 72 ML EPIDURAL SCH (15:45)
[2017-11-29] MEDS ORDERED: Communication Order-Pharmacy FS SCH (15:45)
[2017-11-29] MEDS ORDERED: diphenhydrAMINE 25 MG CAP PO PRN (17:02)
[2017-11-29] MEDS ORDERED: Benzocaine/Menthol 20-0.5% 60 ML CAN TOP PRN (17:02)
[2017-11-29] MEDS ORDERED: HYDROcodone/Acetaminophen 5/325 mg Tablet PO PRN ×2 (17:02)
[2017-11-29] MEDS ORDERED: Bisacodyl 10 MG SUPP PR PRN (17:02)
[2017-11-29] MEDS ORDERED: Lanolin Ointment 7 GM TUBE TOP PRN (17:02)
[2017-11-29] MEDS ORDERED: NS / Oxytocin 40 units/1000ml 1,000 ML IV SCH (17:02)
[2017-11-29] MEDS ORDERED: Milk Of Magnesia 30 ML UDCUP PO PRN (17:02)
[2017-11-29] MEDS: Ferrous Sulfate 325 MG TAB PO SCH (17:18)
[2017-11-29] MEDS: Ibuprofen 800 MG TAB PO SCH (18:38)
[2017-11-29] MEDS ORDERED: Bupivacaine 0.25% HCL 30 ML VIAL ONE (21:00)
[2017-11-29] MEDS: Docusate Calcium (SURFAK) 240 MG CAP PO SCH (21:05)
[2017-11-30] MEDS: Ibuprofen 800 MG TAB PO SCH ×3 (02:44→18:45)
[2017-11-30 06:12] LABS: Mean Corpuscular HGB CONC 34.2 g/dL (32.0-36.0); Mean Corpuscular Hemoglobin 31.7 pg (27.0-31.0); Mean Corpuscular Volume 92.5 fL (78.0-98.0); Mean Platelet Volume 8.9 fL (7.4-10.4); Platelet Count 104 thou/uL (130-400); RBC Distribution Width 13.1 % (11.5-14.5); Red Blood Cell (RBC) Count 3.78 mill/uL (4.20-5.40)
[2017-11-30] MEDS: Docusate Calcium (SURFAK) 240 MG CAP PO SCH ×2 (09:11→23:06)
[2017-11-30] MEDS: Ferrous Sulfate 325 MG TAB PO SCH ×2 (09:11→16:57)
[2017-11-30] MEDS: Prenatal Vitamin 1 TAB PO SCH (09:11)
[2017-12-01] MEDS: Ibuprofen 800 MG TAB PO SCH ×2 (02:59→10:03)
[2017-12-01] MEDS: Ferrous Sulfate 325 MG TAB PO SCH (08:21)
[2017-12-01] MEDS: Prenatal Vitamin 1 TAB PO SCH (08:32)
[2017-12-01] MEDS: Docusate Calcium (SURFAK) 240 MG CAP PO SCH (10:03)
[2017-12-01 11:36] VITALS: BP 127/89; TEMP 99
[2017-12-01] MEDS ORDERED: Measles/Mumps/Rubella 10 MCG/0.5 ML VIAL SC ONE (13:15)
== END 2017-12-01 15:00 | disposition home or self-care (01) | DRG 775 ==
LOC: L&D 20:41 → 3SE 11-29 16:19
PROVIDERS: ADMIT Family Medicine; ATTEND Family Medicine
PROC: 10E0XZZ Delivery of Products of Conception, External Approach (ICD-10-PCS; principal; 2017-11-29)
PROC: 10907ZC Drainage of Amniotic Fluid, Therapeutic from Products of Conception, Via Natural or Artificial Opening (ICD-10-PCS; 2017-11-29)
PROC: 3E033VJ Introduction of Other Hormone into Peripheral Vein, Percutaneous Approach (ICD-10-PCS; 2017-11-29)
DX: O13.4 Gestational [pregnancy-induced] hypertension without significant proteinuria, complicating childbirth (principal); Z37.0 Single live birth; Z3A.39 39 weeks gestation of pregnancy
CPT/HCPCS: 36415; 51702; 85027; 86780; 86850; 86900; 86901; 87340; 90707; J0595; J2001; J2405; J3010; J3490; J7050; S0020

== ENCOUNTER 2019-06-20 08:14 | Outpatient (CLI) | payer OTHER ==
--- NOTE | 2019-06-20 10:48 | ULT ---
ULTRASOUND OBSTETRICAL COMPLETE: DATE: 06/20/2019. HISTORY: A 23-year-old female. ICD-10: O09.892, supervision of other high-risk pregnancies, second trimester. Comments: Complete anatomy, size and dates, cervical length FINDINGS: number: [place]. lie: Breech. Maternal cervix: 4.5 cm and closed. Placenta: Posterior. No placenta previa. Amniotic fluid volume: CLARICE 13 cm. heart rate: 142 b.p.m. The following anatomy is visualized, with no evidence of anomalies: Head, lateral ventricles, cerebellum, nose and lips, spine, upper limbs, lower limbs, four chamber he art, umbilical cord, cord insertion, stomach, kidneys, and bladder. biometry: Head circumference (HC): 20.0 cm 22 w 1 d Biparietal diameter (BPD): 5.3 cm 22 w 1 d Abdominal circumference (AC): 18.1 cm 23 w 0 d Femur length (FL): 3.6 cm 21 w 2 d Average ultrasound age (AUA): 22 w 1 d Estimated date of delivery (ROB): 10/23/2019. Last menstrual period (LMP): 01/15/2019. Gestational age by LMP: 22 w 2 d. Estimated weight (EFW): 485 g+/-71 g (1 lb 1 oz+/- 2 oz). IMPRESSION: 1. Live 2nd trimester intrauterine gestation. 2. Estimated gestational age of 22 weeks, 1 day. 3. Breech lie. 4. No anatomical abnormalities. jill [] POS: [facility]
== END 2019-06-20 08:15 | disposition home or self-care (01) ==
LOC: BICULT 08:14
PROVIDERS: ATTEND Family Medicine
DX: O09.892 Supervision of other high risk pregnancies, second trimester (principal); Z3A.22 22 weeks gestation of pregnancy; O32.1XX0 Maternal care for breech presentation, not applicable or unspecified
CPT/HCPCS: 76805

== ENCOUNTER 2019-08-26 11:13 | Inpatient (IN) | payer OTHER ==
[2019-08-26 11:50] VITALS: BMI 30.9
[2019-08-26] MEDS ORDERED: hydrALAZINE 20 MG/ML VIAL SLOW IVP PRN (12:40)
[2019-08-26] MEDS ORDERED: Lactated Ringer's 1,000 ML IV SCH ×2 (12:45→16:00)
--- NOTE | 2019-08-26 13:15 | PDOC.FPROB ---
FMR OB H&P: HPI - History of Present Illness Chief Complaint: abd pain Indentification: 23 y/o @ 31.5 WGA History of Present Illness: Patient presents for right sided abd pain that starts in her back and radiates to her lower right abdomen. It has been going on since this morning. She has associated chills and shaking. She reports a couple of episodes of vomiting this AM. She endorses ctx that are not very painful. Denies LOF, VB. +FM. Primary Care Physician: Dr. Hinds FMR OB H&P: History - Past Medical History PMH: Denies - OB History OB History: 1 term - h/o pyelo during her first h/o pre-eclampsia during her first - Surgical History Sx History: Denies - Social History Social History: Denies - Family History Family History: Denies FMR OB H&P: Medications - Current Home Medications: Medication Instructions Recorded Confirmed Type Vitamin 1 tablet PO DAILY 08/21/17 08/26/19 History Aspirin 81 mg PO DAILY 08/26/19 08/26/19 History Allergies/Adverse Reactions: Allergies Allergy/AdvReac Type Severity Reaction Status Date / Time No Known Allergies Allergy Verified 11/21/17 12:03 FMR OB H&P: ROS - Review of Systems General: reports: fever/chills. denies: weight/appetite/sleep changes Eyes: denies: vision changes, double vision ENT: denies: rhinorrhea, sore throat Cardiovascular: denies: chest pain, edema Respiratory: reports: cough (associated with her seasonal allergies). denies: shortness of breath Gastrointestinal: reports: abdominal pain, nausea, vomiting Genitourinary (Female): reports: contractions. denies: dysuria, vaginal discharge, vaginal bleeding Musculoskeletal: denies: pain, swelling Neurologic: denies: numbness, weakness Integumentary: denies: itching, rash Breast: denies: lumps, bumps Psychological: denies: depression, anxiety FMR OB H&P: Vital Signs - Maternal Vital signs: Vital Signs - First Documented Temp Pulse Resp BP 98.5 F 83 18 117/76 08/26/19 11:30 08/26/19 11:30 08/26/19 11:30 08/26/19 11:30 - Heart Tones Baseline: 130 Variability: moderate Acceleration: present Deceleration: absent Category: category 1 (reactive strip) [place] contractions every: 4-6 min FMR OB H&P: Physical Exam - Physical Exam General: NAD, awake, alert and oriented HEENT: normocephalic and atraumatic, MMM, conjunctiva clear, grossly normal vision, grossly normal hearing General: no respiratory distress Abdomen: gravid Skin: good tugor Psychiatric: intact recent and remote memory, good judgement and insight FMR OB H&P: A/P - Problem List (1) Abdominal pain affecting Current Visit: Yes Status: Acute Code(s): O26.899 - OTH RELATED CONDITIONS, UNSPECIFIED TRIMESTER; R10.9 - UNSPECIFIED ABDOMINAL PAIN (2) contractions Current Visit: Yes Status: Acute Code(s): O47.9 - FALSE LABOR, UNSPECIFIED (3) Suspected COVID-19 virus infection Current Visit: Yes Status: Acute Code(s): Z20.828 - CONTACT W AND EXPOSURE TO OTH VIRAL COMMUNICABLE DISEASES Disposition: 1. Abdominal pain in Concerning for pyelonephritis. -Will check cath UA, CBC, CMP -Give 1L LR -Monitor FHT -Plan pending results 2. contractions, labor rule-out -Will check cervical length -Send FFN if shortened cervical length -Give 1L LR -Monitor FHT and ctx pattern 3. COVID suspected Pt with chills, N/V, cough (associated with allergies) -Will test for COVID-19 infection -If patient d/c home then will give strict isolation precautions until results come back Discussion: Date/Time: 08/26/19 9489 This H&P was discussed with Dr. Jones who agrees with the above documentation and plan. Signature: Viki Monk MD, PGY-3
--- NOTE | 2019-08-26 13:30 | HP ---
TIME: 12:30. This is the patient of Dr. Hinds. The patient was seen in triage in bed D along with Dr. Monk. It is important to note that we did keep a distance from the patient as she screened positive on questionnaires here in Labor and Delivery. She tested positive on the questionnaire for chills and cough and so we made her a COVID testing candidate. We are not clear how she came up to Labor and Delivery after the initial emergency department/check-in screening questionnaire. Nonetheless, she is stable here in triage B. She is wearing a mask. HISTORY OF PRESENT ILLNESS: In brief, this is a 23-year-old G2, P1, with a vaginal delivery in the past, who states some right-sided discomfort that comes around to her front. She has no vaginal bleeding or complaint of leakage of fluid or contractions, and she has good movement. She has not really said that she has any fever, although she has had this cough and chills occasionally. She has not had any recent trauma. REVIEW OF SYSTEMS: Complete review of systems was checked and is otherwise negative unless specified in the HPI. PAST MEDICAL HISTORY: Negative. OB HISTORY: Significant for a vaginal delivery in the past. That did have pyelonephritis by her report. ALLERGIES: TO MEDICATIONS ARE NONE. PHYSICAL EXAMINATION: GENERAL: The patient is in no acute distress and was lying down with the mask on. We tried to maintain our distance during the interview portion. PELVIC: Grossly, there is no evidence of vaginal bleeding or ruptured membranes. On external monitor, heart tones are reactive for the gestational age, she is approximately 31 weeks and 5 days. She does have some slight uterine contractions on tocodynamometer. Again, the patient does not actually recognizes those, but we do see them. They are irregular, but they are about every 5 minutes or so. ASSESSMENT: This is a 23-year-old, G2, P1, at 31-32 weeks with nonspecific lower back pain, more on the right. We will do a pyelonephritis workup. She is also a COVID rule out, although index of suspicion is not very high. PLAN: 1. Cath UA, CBC, CMP. 2. IV fluid hydration. 3. Because of the contractions, I have ordered a cervical length (transvaginal) and if it is less than 2.5 cm, we will order an FFN per ACOG guidelines. 4. I will get a COVID test, although I did explain to the patient that we will not have this back today and she can follow up with Dr. Hinds. 5. For now, we will do expectant management and see what these initial labs show. I have seen the patient along with Dr. Monk who was the resident on-call at bedside. Job ID: [id number]
[2019-08-26 14:21] LABS: #Lymphocytes 1.3 thou/uL (1.20-3.40); #Monocytes 0.6 thou/uL (0.11-0.59); #Neutrophils 9.9 thou/uL (1.40-6.50); %Basophils 0.4 % (0.0-1.0); %Eosinophils 0.3 % (0.0-10.0); %Lymphocytes 10.7 % (21.0-51.0); %Monocytes 4.8 % (0.0-10.0); %Neutrophils 83.8 % (42.0-75.0); Hemoglobin 13.6 g/dL (12.0-16.0); Mean Corpuscular HGB CONC 35.6 g/dL (32.0-36.0); Mean Corpuscular Hemoglobin 32.5 pg (27.0-31.0); Mean Corpuscular Volume 91.4 fL (78.0-98.0); Mean Platelet Volume 9.7 fL (7.4-10.4); Platelet Count 112 thou/uL (130-400); RBC Distribution Width 12.6 % (11.5-14.5); Red Blood Cell (RBC) Count 4.17 mill/uL (4.20-5.40); White Blood Cell (WBC) Count 11.9 thou/uL (4.8-10.8)
[2019-08-26 14:21] LABS: Bilirubin Negative (Negative); Blood, Urine 2+ (Negative); Clarity Clear (Clear); Glucose, Urine (Dipstick) Normal (Negative); Leukocyte Negative Leu/uL (Negative); Nitrite Negative (Negative); Protein, Urine (Dipstick) Negative (Neg-Trace); RBC/HPF Greater than 50 HPF (0-3); Squamous Epithelial 0-3 HPF (0-3); Urobilinogen Normal mg/dL (Less than 2); WBC/HPF 0-3 HPF (0-3)
[2019-08-26 14:29] LABS: Bacteria/HPF 1+ HPF (None Seen); Yeast-Budding None Seen HPF (None Seen)
[2019-08-26 14:30] LABS: Urine Culture Reflex Yes Yes
[2019-08-26 14:37] LABS: ALT (SGPT) 11 U/L (8-55); AST (SGOT) 22 U/L (5-34); Albumin 3.6 g/dL (3.5-5.0); Alkaline Phosphatase 104 U/L (40-110); Anion Gap 16 mmol/L (10-20); BUN (Urea Nitrogen) 6 mg/dL (7.0-18.7); Bilirubin, Total 0.4 mg/dL (0.2-1.2); Calc. Creatinine Clearance 217 mL/min (70-130); Calcium 8.5 mg/dL (7.8-10.44); Carbon Dioxide 21 mmol/L (22-29); Chloride 104 mmol/L (98-107); Estimated GFR-MDRD Greater than 90; Globulin 2.7 g/dL (2.4-3.5); Glucose 75 mg/dL (70-105); Protein, Total 6.3 g/dL (6.0-8.3); Sodium 137 mmol/L (136-145)
--- NOTE | 2019-08-26 15:18 | PDOC.BPN ---
- Brief Progress Note UA with 1+ bacteria. Slight WBC elevation at 11.9. UCX sent. I will admit for presumed PYEOL (Rt) and order IV Rocephin and po macrobid for now. COVID test sent
--- NOTE | 2019-08-26 15:22 | ULT ---
EXAM: Pelvic ultrasound HISTORY: Evaluate cervical length and a third trimester COMPARISON: 06/20/2019 TECHNIQUE: Multiple grayscale and color Doppler images were obtained in a transabdominal and transvag inal pelvic ultrasound. Spectral analysis of the Doppler waveforms of the ovaries were performed. FINDINGS: The fetus is in vertex presentation. The fetus was otherwise not interrogated. The cervix measures 5. 6 cm in length without evidence of funneling. IMPRESSION: Cervical length of 5.6 cm
[2019-08-26] MEDS ORDERED: Sodium Chloride 0.9% 1,000 ML IV SCH (16:00)
[2019-08-26] MEDS ORDERED: Acetaminophen 500 MG TAB PO PRN (16:14)
[2019-08-26] MEDS ORDERED: Ondansetron PF 4 MG/2 ML Vial IVP PRN (16:14)
[2019-08-26] MEDS: cefTRIAXone\\ROCEPHIN 1 GM in Sodium Chloride 0.9% 100 ML IVPB SCH (16:51)
[2019-08-26] MEDS: Aspirin Chewable 81 MG TAB PO SCH (16:53)
[2019-08-26] MEDS: Nitrofurantoin Monohyd/M-Cryst 100 MG CAP PO SCH (21:23)
[2019-08-27 06:33] LABS: Anion Gap 13 mmol/L (10-20); BUN (Urea Nitrogen) 4 mg/dL (7.0-18.7); Calc. Creatinine Clearance 248 mL/min (70-130); Calcium 8.1 mg/dL (7.8-10.44); Carbon Dioxide 21 mmol/L (22-29); Chloride 106 mmol/L (98-107); Estimated GFR-MDRD Greater than 90; Glucose 90 mg/dL (70-105); Potassium 3.7 mmol/L (3.5-5.1); Sodium 136 mmol/L (136-145)
[2019-08-27 07:25] LABS: #Eosinphils 0.1 thou/uL (0.0-0.7); #Lymphocytes 1.4 thou/uL (1.20-3.40); #Monocytes 0.4 thou/uL (0.11-0.59); #Neutrophils 4.9 thou/uL (1.40-6.50); %Basophils 0.6 % (0.0-1.0); %Eosinophils 1.2 % (0.0-10.0); %Lymphocytes 19.9 % (21.0-51.0); %Monocytes 6.1 % (0.0-10.0); %Neutrophils 72.2 % (42.0-75.0); Hemoglobin 12.4 g/dL (12.0-16.0); Mean Corpuscular HGB CONC 34.4 g/dL (32.0-36.0); Mean Corpuscular Hemoglobin 31.6 pg (27.0-31.0); Mean Corpuscular Volume 91.9 fL (78.0-98.0); Mean Platelet Volume 9.6 fL (7.4-10.4); Platelet Count 106 thou/uL (130-400); RBC Distribution Width 12.7 % (11.5-14.5); Red Blood Cell (RBC) Count 3.91 mill/uL (4.20-5.40); White Blood Cell (WBC) Count 6.8 thou/uL (4.8-10.8)
[2019-08-27 07:26] LABS: MDiff Complete? YES
[2019-08-27] MEDS: Nitrofurantoin Monohyd/M-Cryst 100 MG CAP PO SCH (08:22)
[2019-08-27] MEDS: Aspirin Chewable 81 MG TAB PO SCH (08:22)
[2019-08-27] MEDS ORDERED: Prenatal Vitamin 1 TAB PO SCH (09:00)
[2019-08-27 13:46] LABS: SARS-CoV-2 MS2 Positive; SARS-CoV-2 N Gene Negative; SARS-CoV-2 S Gene Negative; SARS-CoV-2 orf1ab Negative
[2019-08-27 15:50] VITALS: BP 117/64; TEMP 98.4
[2019-08-27] MEDS: cefTRIAXone\\ROCEPHIN 1 GM in Sodium Chloride 0.9% 100 ML IVPB SCH (17:39)
== END 2019-08-27 18:55 | disposition home or self-care (01) | DRG 833 ==
LOC: L&D/OP 11:13 → L&D 17:19 → 3SW 19:08
PROVIDERS: ADMIT Family Medicine; ATTEND Family Medicine
PROC: 8E0ZXY6 Isolation (ICD-10-PCS; principal; 2019-08-26)
DX: O23.03 Infections of kidney in pregnancy, third trimester (principal); O47.9 False labor, unspecified; Z20.828 Contact with and (suspected) exposure to other viral communicable diseases; O26.893 Other specified pregnancy related conditions, third trimester; Z3A.31 31 weeks gestation of pregnancy
CPT/HCPCS: 36415; 59025; 76815; 80048; 80053; 81001; 85025; 87086; 87635; J0696; J3490; U0003